=== PATIENT | female | born 1995 | race Caucasian/White ===

== ENCOUNTER 2021-11-14 12:38 | Outpatient (CLI) | payer MEDICAID | END 2021-11-14 23:59 | disposition home or self-care (01) | LOC: RAD 12:38 | PROVIDERS: ATTEND General Practice | DX: F11.20 Opioid dependence, uncomplicated (principal) | CPT/HCPCS: 93005 ==

== ENCOUNTER 2021-12-03 15:17 | Outpatient (CLI) | payer MEDICAID | END 2021-12-03 23:59 | disposition home or self-care (01) | LOC: RAD 15:17 | PROVIDERS: ATTEND General Practice | DX: F11.20 Opioid dependence, uncomplicated (principal) | CPT/HCPCS: 93005 ==

== ENCOUNTER 2022-12-12 05:19 | Emergency (ER) | payer MEDICAID ==
[~2022-12-12] VITALS: Ht 165.1 cm; Wt 60.0 kg
[2022-12-12 05:23] VITALS: BP 115/75
[2022-12-12 07:48] LABS: URINE HCG POSITIVE (NEG)
[2022-12-12 07:57] LABS: URINE AMPHETAMINE SCREEN POSITIVE (Neg); URINE BARBITUATE SCREEN NEGATIVE (Neg); URINE BENZODIAZEPINES SCREEN NEGATIVE (Neg); URINE CANNABINOID SCREEN NEGATIVE (Neg); URINE COCAINE SCREEN POSITIVE (Neg); URINE METHADONE SCREEN POSITIVE (Neg); URINE OPIATE SCREEN NEGATIVE (Neg); URINE PHENCYCLIDINE SCREEN NEGATIVE (Neg)
== END 2022-12-12 08:17 | disposition home or self-care (01) ==
LOC: ER 05:20
DX: O26.892 Other specified pregnancy related conditions, second trimester (principal); F11.129 Opioid abuse with intoxication, unspecified; Z3A.19 19 weeks gestation of pregnancy
CPT/HCPCS: 80305; 81025; 99283

== ENCOUNTER 2023-01-22 02:44 | Emergency (ER) | payer MEDICAID ==
[~2023-01-22] VITALS: Ht 165.1 cm; Wt 68.6 kg
[2023-01-22 02:52] VITALS: BP 135/84; PULSE 85; RESP 18; TEMP 98.9; O2SAT 99
[2023-01-22] MEDS ORDERED: bacitracin 15gm ointment TP ONE (04:40)
== END 2023-01-22 05:04 | disposition home or self-care (01) ==
LOC: ER 02:46
DX: O26.892 Other specified pregnancy related conditions, second trimester (principal); L02.01 Cutaneous abscess of face
CPT/HCPCS: 10060; 99282

== ENCOUNTER 2023-02-04 03:27 | Emergency (ER) | payer MEDICAID ==
[~2023-02-04] VITALS: Ht 165.1 cm; Wt 67.4 kg
[2023-02-04 03:29] VITALS: TEMP 98.5
[2023-02-04 04:46] LABS: BILIRUBIN,URINE NEGATIVE (Neg); CLARITY,URINE SLIGHTLY CLOUDY (Clear); COLOR,URINE YELLOW (Yellow); GLUCOSE, URINE 500 mg/dl (Neg); KETONES,URINE NEGATIVE (Neg); LEUKOCYTE ESTERASE ,URINE NEGATIVE (Neg); NITRITES, URINE NEGATIVE (Neg); OCCULT BLOOD,URINE NEGATIVE (Neg); PROTEIN,URINE TRACE mg/dl (Neg)
[2023-02-04 04:47] LABS: UA COLLECTION TYPE CLN CATCH MIDSTREAM
[2023-02-04] MEDS ORDERED: CLIN-214 PO (04:49)
[2023-02-04] MEDS ORDERED: MICO45CR73 VG (04:49)
[2023-02-04 05:04] LABS: BACTERIA,URINE 1+ /HPF (Neg); MUCUS STRANDS MANY /LPF (Neg); RBC,URINE 0-2 /HPF (0-2); SPERM FEW /HPF
[2023-02-04 05:05] LABS: SQUAMOUS EPITHELIAL CELL,UR MANY /LPF (FEW)
[2023-02-04 05:18] VITALS: BP 111/72; PULSE 79; RESP 14; O2SAT 99
== END 2023-02-04 05:31 | disposition home or self-care (01) ==
LOC: ER 03:28
DX: L02.11 Cutaneous abscess of neck (principal); Z79.899 Other long term (current) drug therapy
CPT/HCPCS: 10060; 81001; 99283

== ENCOUNTER 2023-09-13 01:52 | Emergency (ER) | payer MEDICAID ==
[~2023-09-13] VITALS: Ht 165.1 cm; Wt 63.0 kg
[~2023-09-13 01:52] MED LIST: CLIN-214 PO; MICO45CR73 VG
[2023-09-13 01:55] VITALS: BP 140/89; PULSE 108; RESP 20; TEMP 98; O2SAT 100
[2023-09-13] MEDS: TETanus/Pertussis (Acell)/Diphther VAC/PF (Tdap-Adult) 0.5ml syringe IMVAC ONE (03:41)
[2023-09-13] MEDS: LIDOcaine 1% W/epiNEPHrine 1:100,000 20ml vial IJ ONE (03:41)
[2023-09-13] MEDS ORDERED: HYDR-3965 PO (04:11)
[2023-09-13] MEDS ORDERED: DOXY-457 PO (04:11)
[2023-09-13] MEDS: DOXYCYCLINE 100MG CAPSULE PO STA (04:23)
[2023-09-13] MEDS: rifampin 300mg capsule PO SCH (04:24)
[2023-09-13] MEDS: naproxen 500mg tablet PO ONE (04:24)
[2023-09-13] MEDS: HYDROcodone/acetaminophen 10/325mg tab PO ONE (04:24)
== END 2023-09-13 04:39 | disposition home or self-care (01) ==
LOC: ER 01:52
DX: L02.212 Cutaneous abscess of back [any part, except buttock and flank] (principal); L02.93 Carbuncle, unspecified; L02.413 Cutaneous abscess of right upper limb; Z79.2 Long term (current) use of antibiotics; Z79.899 Other long term (current) drug therapy
CPT/HCPCS: 10060; 90471; 90715; 99284; J3490; A6212

== ENCOUNTER 2024-03-13 00:01 | Emergency (ER) | payer MEDICAID ==
[~2024-03-13] VITALS: Ht 165.1 cm; Wt 63.6 kg
[2024-03-13 00:04] VITALS: TEMP 98.7
[2024-03-13 00:16] VITALS: BP 105/74; PULSE 94; RESP 17; O2SAT 98
== END 2024-03-13 00:17 ==
LOC: ER 00:02
DX: O9A.213 Injury, poisoning and certain other consequences of external causes complicating pregnancy, third trimester (principal); S80.811A Abrasion, right lower leg, initial encounter; Z3A.28 28 weeks gestation of pregnancy; Z79.2 Long term (current) use of antibiotics; Z79.899 Other long term (current) drug therapy; X58.XXXA Exposure to other specified factors, initial encounter; Y93.89 Activity, other specified; Y92.89 Other specified places as the place of occurrence of the external cause; Y99.8 Other external cause status
CPT/HCPCS: 99283

== ENCOUNTER 2024-04-05 03:41 | Emergency (ER) | payer MEDICAID ==
[~2024-04-05] VITALS: Ht 165.1 cm; Wt 68.2 kg
[2024-04-05 03:45] VITALS: BP 117/86; PULSE 87; RESP 16; TEMP 97.8; O2SAT 100
== END 2024-04-05 06:56 | disposition left against medical advice (07) ==
LOC: ER 03:41
DX: R30.9 Painful micturition, unspecified (principal); N89.8 Other specified noninflammatory disorders of vagina; Z53.21 Procedure and treatment not carried out due to patient leaving prior to being seen by health care provider

== ENCOUNTER 2024-04-30 00:44 | Emergency (ER) | payer MEDICAID ==
[~2024-04-30] VITALS: Ht 165.1 cm; Wt 63.0 kg
[2024-04-30 01:17] VITALS: BP 118/80; PULSE 93; RESP 16; TEMP 98.2; O2SAT 99
== END 2024-04-30 01:15 ==
LOC: ER 00:44
DX: O99.413 Diseases of the circulatory system complicating pregnancy, third trimester (principal); I99.9 Unspecified disorder of circulatory system; Z3A.00 Weeks of gestation of pregnancy not specified
CPT/HCPCS: 99283

== ENCOUNTER 2025-01-12 10:37 | Emergency (ER) | payer MEDICAID ==
[~2025-01-12] VITALS: Ht 165.1 cm; Wt 75.0 kg
[2025-01-12 10:41] VITALS: BP 119/79; PULSE 77; RESP 18; TEMP 97.9; O2SAT 100
--- NOTE | 2025-01-12 10:45 | Physician Documentation ---
HPI ~ General Chief Complaint: Medication Request Stated Complaint: MED REQUEST Time Seen by MD: 10:38 Primary Medical Doctor: YUSEF History of Present Illness HPI Comments Patient presents to the emergency room for refill of her risperidone and requesting Suboxone. She has experience with Suboxone previously in his aware of potential side effects. Last time used yesterday. She is interested in going to rehab facility. Medication Reconciliation Allergies: Coded Allergies: No Known Allergies (Unverified , 01/12/25) Scheduled Clindamycin HCl (Clindamycin HCl CAPSULE), 1 CAP PO TID Miconazole Nitrate (Monistat 7), 1 APPLICATOR VG HS Past Medical History Past Medical History: No Pertinent History Past Surgical History: noncontributory Alcohol Use: None Drug Use: none Lives with: S/O Review of Systems ROS All review of systems negative except as per HPI Physical Exam Physical Exam Vital Signs: Temperature: 97.9, Source: Temporal, Heart Rate: 77, Respiratory Rate: 18, BP: 119/79, Pulse Oximetry: 100, Weight: 75.050 Oxygen Flow Rate: 0 Physical Exam General: Patient is awake, alert, oriented x4 in no acute distress and well appearing.~ Head: Normocephalic and atraumatic. Eyes: Conjunctival normal. EOMI. PERRL. ENT: Mucous membranes moist. Neck: Supple, trachea is midline. Chest: Clear to auscultation bilaterally without rales, rhonchi, or wheezes. There is no accessory muscle use or retractions. Cardiac: RRR without murmurs, gallops, or rubs. Abd: Soft, nondistended, nontender, with normoactive bowel sounds. No guarding, rebound, or rigidity. Extremities: Normal strength. Normal range of motion. No deformities or edema. Back: No midline spinal or CVA tenderness. Skin: Warm and dry with no significant rash appreciated. Neuro: Cranial nerves II-XII grossly intact. No focal neuro deficits. Patient ambulating without difficulty. Progress Results/Orders Results/Orders Vital Signs 01/12/25 10:41 Temp 97.9 Pulse 77 Resp 18 B/P (MAP) 119/79 Pulse Ox 100 O2 Flow Rate 0 Medical Decision Making Findings Patient presented to the emergency room requesting medications as per HPI. We will refill her risperidone as well as give her a prescription for Suboxone. Departure Disposition: 01 HOME / SELF CARE / HOMELESS Impression: Primary Impression: Medication refill Condition: Stable Discharge Instructions: Medicine Refill at the Emergency Department Additional Instructions: You are medically cleared for detox program Referrals: NO PRIMARY CARE PROVIDER (PCP) Prescriptions Risperidone (Risperidone) 1 Mg Tab.rapdis 1 TAB PO Q12H for 30 Days, #60 TAB 0 Refills Prov: PANCHO KITCHEN MD 01/12/25 Buprenorphine Hcl/Naloxone Hcl (Suboxone 8 Mg-2 Mg Sl Film) 8 Mg-2 Mg Film 1 STRIP SL DAILY for 30 Days, #30 STRIP Prov: PANCHO KITCHEN MD 01/12/25 Education Educated: Patient Educated regarding: diagnosis, treatment, need for follow up Signature Scribe Signature: No scribe Attestation: The note accurately reflects work and decisions made by me.Pancho Kitchen MD 01/12/25 10:52 PANCHO KITCHEN MD Jan 12, 2025 10:45
[2025-01-12] MEDS ORDERED: RISP1TAB69 PO (10:51)
[2025-01-12] MEDS ORDERED: BUPR1FIL3 SL (10:51)
== END 2025-01-12 10:57 | disposition home or self-care (01) ==
LOC: ER 10:38
DX: F11.90 Opioid use, unspecified, uncomplicated (principal); Z76.0 Encounter for issue of repeat prescription; Z79.899 Other long term (current) drug therapy
CPT/HCPCS: 99281

== ENCOUNTER 2025-01-29 05:17 | Emergency (ER) | payer MEDICAID ==
[~2025-01-29] VITALS: Ht 165.1 cm; Wt 68.2 kg
[~2025-01-29 05:17] MED LIST changes: +BUPR1FIL3 SL; +RISP1TAB69 PO
[2025-01-29 08:58] VITALS: TEMP 97.5
--- NOTE | 2025-01-29 09:15 | Physician Documentation ---
History of Present Illness General Chief Complaint: Wound Stated Complaint: SKIN INFECTION Time Seen by MD: 09:02 Primary Medical Doctor: YUSEF History of Present Illness Initial Comments The patient is a 30-year-old female who presents with multiple lesions over her body. These have been progressing over the past few weeks. Medication Reconciliation Allergies: Coded Allergies: No Known Allergies (Unverified , 01/12/25) Scheduled Buprenorphine Hcl/Naloxone Hcl (Suboxone 8 Mg-2 Mg Sl Film), 1 STRIP SL DAILY Clindamycin HCl (Clindamycin HCl CAPSULE), 1 CAP PO TID Miconazole Nitrate (Monistat 7), 1 APPLICATOR VG HS Risperidone (Risperidone), 1 TAB PO Q12H Past Medical History Past Medical History: No Pertinent History Past Surgical History: noncontributory Alcohol Use: None Drug Use: none Lives with: S/O Review of Systems ROS All systems are negative except as noted in the HPI. Physical Exam Physical Exam Vital Signs: Temperature: 97.5, Source: Oral, Heart Rate: 67, Respiratory Rate: 15, BP: 112/79, Pulse Oximetry: 97, Weight: 68.180 Oxygen Flow Rate: 0 Physical Exam Physical Exam Vitals and nursing note reviewed. Constitutional: General: Patient is awake, alert, oriented x 4 in no acute distress and well appearing. Speech is clear and lucid. Appearance: Normal appearance. Patient is not ill-appearing, toxic-appearing or diaphoretic. HENT: Head: Normocephalic and atraumatic. Mouth/Throat: Mouth: Mucous membranes are moist. Pharynx: Oropharynx is clear. Eyes: General: No scleral icterus. Extraocular Movements: Extraocular movements intact. Pupils: Pupils are equal, round, and reactive to light. Neck: Supple, no Kernig or Brudzinski sign. Cardiovascular: Rate and Rhythm: Normal rate and regular rhythm. Heart sounds: No murmur heard. Pulmonary: Effort: No respiratory distress. Breath sounds: No wheezing, rhonchi or rales. Abdominal: General: There is no distension. Palpations: There is no fluid wave, hepatomegaly or mass. Tenderness: There is no abdominal tenderness. There is no guarding. Musculoskeletal: General: No swelling or deformity. Skin: Coloration: Skin is not jaundiced. Findings: Multiple lesions less than 1 cm, with mild surrounding erythema and central crusting, some weeping, consistent with staph infections Neurological: Mental Status: Patient is alert. Progress Results/Orders Results/Orders Vital Signs 01/29/25 01/29/25 05:40 08:58 Temp 98.2 97.5 Pulse 89 67 Resp 18 15 B/P (MAP) 102/72 112/79 (90) Pulse Ox 98 97 O2 Flow Rate 0 Medical Decision Making Findings This patient appears to have multiple areas of staph infection on her body. I am going to prescribe Bactrim. Departure Impression: Primary Impression: Staphylococcal infectious disease Condition: Stable Additional Instructions: It is important to see your doctor or primary care provider. Emergency care may be incomplete without proper follow-up. Symptoms sometimes change or new symptoms might arise after you leave the emergency department. It is important that you call your doctor if you become worse in any way, or return to the emergency department. You are strongly urged to follow-up with your physician to assure complete and thorough care. Please call your doctor's office today, and informed them that you were seen in the emergency department, and that you need to be seen immediately for close follow-up. If you do not have a primary care doctor we encourage you to proactively seek a local physician for close follow-up. Consider local clinics, [facility], or local [facility]. Prior to discharge we spoke at length concerning symptoms that would merit reevaluation, but please return to the emergency department for any symptoms that are concerning to you, and we will be happy to continue your evaluation and treatment. Please note you can always return to the emergency department if you are having difficulty coordinating close follow-up. If medications were prescribed, you should fill them at your local pharmacy immediately and take only as prescribed. Bring your new medications to your doctors follow-up visit to discuss any changes that would be necessary. Please check [facility] for any results you did not receive in the Emergency Department: often we are unable to get all your tests back before you leave, and these tests need to be reviewed by your PCP and yourself. You can also call Medical Records if you are unable to access the internet to see MyChart. Return to the emergency department immediately for worsening chest pain, difficulty breathing, sweating, or other concerning emergent symptoms. Referrals: NO PRIMARY CARE PROVIDER (PCP) Prescriptions Sulfamethoxazole/Trimethoprim SS Tab* (Bactrim SS Tablet*) 400 Mg-80 Mg Tablet 1 TAB PO Q12H for 10 Days, #20 TAB Prov: LILLIAN CHAPA MD 01/29/25 Signature Scribe Signature: . Attestation: . LILLIAN CHAPA MD Jan 29, 2025 09:15
[2025-01-29] MEDS ORDERED: SULF-14 PO (09:20)
[2025-01-29 09:22] VITALS: BP 112/79; PULSE 67; RESP 15; O2SAT 98
== END 2025-01-29 09:29 | disposition home or self-care (01) ==
LOC: ER 05:19
DX: A49.8 Other bacterial infections of unspecified site (principal)
CPT/HCPCS: 99283